=== PATIENT | male | born 1950 | race Caucasian/White ===

== ENCOUNTER 2019-11-14 05:42 | HOS | payer OTHER, MEDICARE, SELFPAY ==
--- NOTE | 2019-11-13 20:45 | PC.NURSE ---
This patient, Angel Guzman, was admitted to Medical Room 245-. Patient/family oriented to hospital policies and general routines including ID bracelet, bed and alarms, visiting hours, pain management, procedures, bathroom and other care routines, personal items, smoking policy, room service/diet, and visiting hours. Valuables list has been completed. Information on how to activate the Rapid Response Team has been discussed. Patient/Family are encouraged to report perceived risks to care and to ask questions if they do not understand what they are told or what they should do.
[2019-11-13 22:00] VITALS: BP 124/71; PULSE 107; RESP 16; TEMP 37.2; O2SAT 93
[2019-11-13] MEDS: LORAZEPAM INJ 2 MG/ML VIAL 1 MG IV PUSH (23:41)
[2019-11-14 00:10] VITALS: BMI 16.5
[2019-11-14] MEDS: LORAZEPAM INJ 2 MG/ML VIAL 1 MG IV PUSH ×6 (02:25→17:15)
[2019-11-14 06:00] VITALS: BP 139/72; PULSE 104; RESP 16; TEMP 37.2; O2SAT 96
--- NOTE | 2019-11-14 09:34 | PM.IMHP ---
H&P: HPI History of Present Illness Chief complaint: COPD Narrative: Angel Guzman is a 69 year old male was seen at 08. This unfortunate gentleman was on hospice for end-stage COPD. He is oxygen dependent. Lately he has been eating less and more confused with increased behaviors. On November 13 he fell striking his head on the floor required sutures above the left brow. He was sent back to the facility. However his behaviors escalated and did not respond to oral lorazepam and morphine. Therefore he was admitted to inpatient hospice for evaluation and treatment of his uncontrolled agitation. At baseline he is oriented to person and requires assistance with all ADLs. He is incontinent. PPS score was 40. History was obtained from chart review and from discussion with hospice nurse. Review of Systems Review of Systems: ROS unobtainable: unobtainable due to mental status PMFSH Past Medical History Medical History (Updated 11/14/19 @ 09:47 by Orlando Carter MD) Acute on chronic respiratory failure with hypoxemia Chronic respiratory failure with hypoxia COPD (chronic obstructive pulmonary disease) Dementia Hx of traumatic brain injury Hyperlipidemia Hypertension, essential Surgical History Surgical History (Updated 11/14/19 @ 09:51 by Orlando Carter MD) Surgical history unknown Family History Family History (Updated 11/14/19 @ 09:36 by Orlando Carter MD) Father No problems noted. Mother No problems noted. Other Unknown family medical history Social History Social History (Updated 11/14/19 @ 09:35 by Orlando Carter MD) Smoking status: Former smoker Alcohol intake: unknown Substance use: unknown Substance use type: unknown Living arrangements: residential Occupation/Education: retired Spiritual care concerns: Yes (hospice pt) Meds Home Medications and Allergies Home Medications Medication Instructions Recorded Confirmed Type acetaminophen 1,000 mg PO Q4H PRN 11/13/19 11/13/19 History albuterol sulfate [Ventolin HFA] 2 puff INHALATION Q6H PRN 11/13/19 11/13/19 History buspirone 7.5 mg PO BID 11/13/19 11/13/19 History calcium carbonate [Tums] 500 mg PO Q6H PRN 11/13/19 11/13/19 History ipratropium-albuterol 3 ml INHALATION Q4H PRN 11/13/19 11/13/19 History ipratropium-albuterol 3 ml INHALATION Q6H 11/13/19 11/13/19 History lanolin rfiiktr-xu-s.pet-ceres 1 applic TOPICAL DAILY PRN 11/13/19 11/13/19 History [Eucerin] lorazepam 1 mg PO Q6H 11/13/19 11/13/19 History metoprolol succinate 100 mg PO BID 11/13/19 11/13/19 History mirtazapine 15 mg PO HS 11/13/19 11/13/19 History morphine concentrate 5 mg PO Q6H 11/13/19 11/13/19 History phenytoin sodium extended 200 mg PO DAILY 11/13/19 11/13/19 History prednisone 5 mg PO DAILY 11/13/19 11/13/19 History sennosides [senna] 17.2 mg PO HS 11/13/19 11/13/19 History simvastatin 40 mg PO DAILY 11/13/19 11/13/19 History trazodone 100 mg PO HS 11/13/19 11/13/19 History Allergies Allergy/AdvReac Type Severity Reaction Status Date / Time No Known Allergies Allergy Verified 11/14/19 07:52 Vital Signs Vital Signs - 24 hr 11/13/19 22:00 11/14/19 06:00 Temperature 99 F 98.9 F Pulse Rate 107 H 104 H Respiratory Rate 16 16 Blood Pressure 124/71 139/72 Pulse Oximetry 93 96 Exam Narrative: Exam Narrative: HEENT: EOMI, PERRL, pharyngeal mucosa pink and dry, sutured laceration above left brow NECK: No JVD CHEST: Coarse BS throughout with scattered crackles HEART: NL S1/S2, regular, no murmur ABDOMEN: BS hypoactive, soft, nontender, no mass, no bruits EXTREMITIES: No cyanosis, edema, or clubbing NEUROLOGIC: CN intact and symmetric to inspection. MUSCULOSKELETAL: No obvious deformity PSYCH: Responds only to noxious stimuli Assessment and Plan Assessment and plan (1) Palliative care by specialist: Code(s): Z51.5 - Encounter for palliative care Status: Acute Assessmen
[2019-11-14] MEDS: MORPHINE SULFATE 2 MG/ML INJ IV PUSH ×3 (11:21→17:52)
[2019-11-14] MEDS: GLYCOPYRROLATE INJ (*SP) 0.2 MG/ML VIAL 0.1 MG IV PUSH ×2 (13:27→17:52)
[2019-11-14 14:00] VITALS: BP 136/68; PULSE 130; RESP 28; TEMP 37.4; O2SAT 75
--- NOTE | 2019-11-14 18:03 | PC.NURSE ---
On 11/14/19, the graduate nurse, Dre So RN's, provided care and completed [facility] documentation on this patient. I have reviewed the student's documentation and agree with the findings.
--- NOTE | 2019-11-14 23:35 | PC.NURSE ---
body to [facility] per cart
--- NOTE | 2019-11-15 00:57 | PC.NURSE ---
DAUGHTER TATO RETURNED PHONE CALL, AWARE OF FATHERS AND STATES SHE WILL CALL IN THE MORNING OF WEDNESDAY 11/15 WITH HOME ARRANGEMENTS
--- NOTE | 2019-12-01 11:57 | PM.DDS ---
Discharge Sum: Prov Provider Primary care physician: Orlando Carter MD Admitting provider: Orlando Carter MD Discharge Sum: Diag Contributing Factors (1) Palliative care by specialist: (2) Chronic respiratory failure with hypoxia: (3) COPD (chronic obstructive pulmonary disease): (4) Dementia: Discharge Sum: Summary Date and Time Date of admission: 11/14/19 05:42 Summary Details: Admitted to palliative care/hospice service. Medications titrated to comfort. Patient peacefully. Additional Data Confirmation of as documented by pronouncing clinician: no pulse and no respirations Attending/PCP notified?: Yes Attending physician: Orlando Carter MD Was code activated?: No
== END 2019-11-14 21:35 | disposition expired | DRG 191 ==
PROVIDERS: Admitting Provider Internal Medicine; PCP Internal Medicine; Visit Provider Internal Medicine
DX: J44.9 Chronic obstructive pulmonary disease, unspecified (principal); J96.11 Chronic respiratory failure with hypoxia; F03.91 Unspecified dementia, unspecified severity, with behavioral disturbance; Z51.5 Encounter for palliative care; Z99.81 Dependence on supplemental oxygen; Z87.820 Personal history of traumatic brain injury
CPT/HCPCS: 87081; J2060; J2270